=== PATIENT | male | born 1980 | race Two or more races ===

== ENCOUNTER 2020-05-08 04:14 | Emergency (ER) | payer MEDICARE, OTHER ==
[2020-05-08 04:28] VITALS: BP 160/109
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
== END 2020-05-08 05:44 | disposition home or self-care (01) ==
LOC: ER 04:14
DX: T65.894A Toxic effect of other specified substances, undetermined, initial encounter (principal); F10.10 Alcohol abuse, uncomplicated; H57.13 Ocular pain, bilateral
CPT/HCPCS: 99283